=== PATIENT | male | born 1975 | race American Indian/Alaskan Native ===

== ENCOUNTER 2016-06-11 19:52 | Emergency (ER) | payer BC ==
[2016-06-11] MEDS ORDERED: PERCOCET 5/325 PO ONE (20:24)
--- NOTE | 2016-06-12 00:30 | XRay Report ---
FINAL REPORT PROCEDURE: XR HAND 3 LT TECHNIQUE: LEFT hand radiographs, AP, lateral, and oblique views. CPT 01170-QN HISTORY: LT HAND swelling COMPARISON: No prior studies are available for comparison. FINDINGS: Fracture (s) and/or Dislocation(s): There are oblique fractures through the distal aspect of the 5th metacarpal in the mid region of the 4th metacarpal. These are slightly impacted. Overlap of fragments is by approximately 3 millimeters. The remaining osseous structures are intact.. Joint space(s): Normal . Soft tissues: Mild diffuse soft tissue swelling. Bone mineralization: Normal . Foreign bodies: None . IMPRESSION: Fractures through the 4th and 5th metacarpals as discussed..
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
[2016-06-12 01:40] VITALS: BP 124/56
== END 2016-06-12 01:41 | disposition home or self-care (01) ==
LOC: ED 19:52
DX: S62.92XA Unspecified fracture of left hand, initial encounter for closed fracture (principal); W22.01XA Walked into wall, initial encounter; Y93.89 Activity, other specified; Y99.8 Other external cause status; Y92.89 Other specified places as the place of occurrence of the external cause

== ENCOUNTER 2017-10-26 09:41 | Emergency (ER) | payer BC, OTHER ==
[2017-10-26] MEDS ORDERED: TORADOL IM ONE (11:20)
[2017-10-26 11:22] VITALS: BP 118/82
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
== END 2017-10-26 11:38 | disposition home or self-care (01) ==
LOC: ED 09:41
DX: S16.1XXA Strain of muscle, fascia and tendon at neck level, initial encounter (principal); S39.012A Strain of muscle, fascia and tendon of lower back, initial encounter; F17.200 Nicotine dependence, unspecified, uncomplicated; V49.59XA Passenger injured in collision with other motor vehicles in traffic accident, initial encounter; Y93.89 Activity, other specified; Y92.89 Other specified places as the place of occurrence of the external cause; Y99.8 Other external cause status
CPT/HCPCS: 96372; 99282; J1885

== ENCOUNTER 2020-07-26 15:53 | Emergency (ER) | payer BC, OTHER ==
[2020-07-26 16:02] VITALS: BP 115/59
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
--- NOTE | 2020-07-26 17:47 | Ultrasound Report ---
ULTRASOUND SCROTUM INDICATION: Right testicular pain. COMPARISON None available. FINDINGS: RIGHT TESTICLE: 4.8 x 2.3 x 3.1 cm. Normal echogenicity. Normal color flow. No solid or cystic lesion s. RIGHT EPIDIDYMIS: No significant abnormality. LEFT TESTICLE: 4.6 x 1.9 x 3.1 cm. Normal echogenicity. Normal color flow. No solid or cystic lesions . LEFT EPIDIDYMIS: No significant abnormality. HYDROCELE: Small right hydrocele. VARICOCELE: None seen. ADDITIONAL FINDINGS: None. IMPRESSION: Small right hydrocele. Signer Name: Francisco J Solares MD Signed: 07/26/2020 5:42 PM Workstation Name: [id number]
[2020-07-26 18:22] LABS: Bilirubin,Urine NEG (Negative); Blood,Urine MOD (Negative); Color,Urine Yellow (Yellow); Mucus,Urine 2+ /HPF; Protein,Urine <15 mg/dL mg/dL (Negative)
[2020-07-26] MEDS ORDERED: HYDROcodone/ACETAMINOPHEN 5-325 MG TAB PO STA (19:32)
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
== END 2020-07-26 20:00 | disposition home or self-care (01) ==
LOC: ED 15:53
DX: S76.211A Strain of adductor muscle, fascia and tendon of right thigh, initial encounter (principal); F17.200 Nicotine dependence, unspecified, uncomplicated; Z79.899 Other long term (current) drug therapy; Z98.890 Other specified postprocedural states; X58.XXXA Exposure to other specified factors, initial encounter; Y93.89 Activity, other specified; Y92.89 Other specified places as the place of occurrence of the external cause; Y99.8 Other external cause status
CPT/HCPCS: 81001; 93975